=== PATIENT | female | born 1995 | race Caucasian/White ===

== ENCOUNTER 2021-07-12 | Day surgery (SDC) | payer BC ==
[2021-07-12] MEDS ORDERED: hydrALAZINE 20 MG/ML VIAL SLOW IVP PRN (01:16)
== END 2021-07-12 01:41 | disposition home or self-care (01) ==
LOC: CSHLD/OP
PROVIDERS: ATTEND Obstetrics & Gynecology
DX: O36.8130 Decreased fetal movements, third trimester, not applicable or unspecified (principal); Z3A.39 39 weeks gestation of pregnancy
CPT/HCPCS: 76815; 99282

== ENCOUNTER 2021-07-15 12:04 | Outpatient (CLI) | payer BC | END 2021-07-15 12:05 | disposition home or self-care (01) | LOC: CSHLAB 12:04 | PROVIDERS: ATTEND Student in an Organized Health Care Education/Training Program | DX: U07.1 COVID-19 (principal) | CPT/HCPCS: U0003; U0005 ==

== ENCOUNTER 2021-07-16 06:41 | Inpatient (IN) | payer BC ==
[2021-07-16] MEDS ORDERED: Butorphanol Tartrate 1 MG/ML VIAL SLOW IVP PRN (07:11)
[2021-07-16] MEDS ORDERED: Diphenoxylate HCl/Atropine Tablet PO PRN (07:11)
[2021-07-16] MEDS ORDERED: Lidocaine 1% (PF) 30 ML VIAL SC PRN (07:11)
[2021-07-16] MEDS ORDERED: hydrALAZINE 20 MG/ML VIAL SLOW IVP PRN ×2 (07:11→18:37)
[2021-07-16] MEDS ORDERED: Misoprostol 200 MCG TAB PR PRN (07:11)
[2021-07-16] MEDS ORDERED: Ondansetron PF 4 MG/2 ML Vial IVP PRN ×3 (07:11→18:37)
[2021-07-16] MEDS ORDERED: Methylergonovine 0.2 MG/ML VIAL IM PRN (07:11)
[2021-07-16] MEDS ORDERED: Carboprost 250 MCG/ML AMP IM PRN (07:11)
[2021-07-16] MEDS ORDERED: Promethazine HCl 25 MG/ML VIAL IM PRN ×2 (07:11→09:21)
[2021-07-16] MEDS ORDERED: NS w/ Oxytocin 30 units 500 ML IV SCH ×2 (07:15)
[2021-07-16] MEDS ORDERED: Penicillin G Potassium 5 MILL.UNITS in Sodium Chloride 0.9% 100 ML IVPB SCH (07:15)
[2021-07-16] MEDS ORDERED: Penicillin G Potassium 5 MILL.UNITS VIAL ONE (07:21)
[2021-07-16] MEDS ORDERED: NS w/ Oxytocin 30 units 500 ML ONE (07:21)
[2021-07-16 07:24] VITALS: BMI 34.2
[2021-07-16] MEDS: Lactated Ringer's 1,000 ML IV SCH ×2 (07:50→09:15)
[2021-07-16] MEDS: Penicillin G 2.5 MILL.units 2.5 MILL.UNITS in Premix Bag 1 BAG IVPB SCH ×2 (07:55→13:00)
[2021-07-16 08:36] LABS: Hemoglobin 12.5 g/dL (12.0-15.5); Mean Corpuscular HGB CONC 33.9 g/dL (32.0-36.0); Mean Corpuscular Hemoglobin 32.4 pg (27.0-33.0); Mean Corpuscular Volume 95.6 fl (81.6-98.3); Mean Platelet Volume 11.4 fl (7.4-10.4); Platelet Count 133 10x3/uL (150-450); RBC Distribution Width 13.8 % (11.5-14.5); Red Blood Cell (RBC) Count 3.86 10x6/uL (3.90-5.03); White Blood Cell (WBC) Count 7.1 10x3/uL (3.5-10.5)
[2021-07-16] MEDS ORDERED: Fentanyl 2 mcg/Bup 0.1% Cadd 100 ML ONE (08:43)
[2021-07-16 09:05] LABS: Hep B Surf Ag Non-Reactive S/CO (NonReactive)
[2021-07-16 09:07] LABS: Syphilis Antibody Nonreactive (Nonreactive); Syphilis Antibody Index 0.06 S/CO (<1.00 Non-Reactive)
[2021-07-16] MEDS ORDERED: Lactated Ringer's 500 ML IV PRN (09:21)
[2021-07-16] MEDS ORDERED: Naloxone HCl 0.4 mg/ml Vial IVP PRN ×2 (09:21)
[2021-07-16] MEDS ORDERED: diphenhydrAMINE 50 MG/ML VIAL IVP PRN (09:21)
[2021-07-16] MEDS ORDERED: ePHEDrine Sulfate 50 MG/10 ML VIAL SLOW IVP PRN (09:21)
[2021-07-16] MEDS ORDERED: Moisturizing Cream (Eucerin) 113 GM JAR TOP PRN (09:21)
[2021-07-16] MEDS ORDERED: Acetaminophen 325 MG TAB PO PRN (09:21)
[2021-07-16] MEDS ORDERED: Fentanyl 2 mcg/Bupivacaine 0.1% Cassette 100 ML EPIDURAL SCH (09:30)
[2021-07-16] MEDS ORDERED: Communication Order-Pharmacy FS SCH (09:30)
[2021-07-16 09:44] LABS: HBSAg Index 0.22 S/CO (0-0.99)
[2021-07-16] MEDS ORDERED: HYDROcodone/Acetaminophen 5/325 mg Tablet PO PRN (18:16)
[2021-07-16] MEDS ORDERED: Ibuprofen 800 MG TAB PO PRN (18:17)
[2021-07-16] MEDS ORDERED: Boostrix 0.5 ML (Tdap) VIAL IM ONE (18:37)
[2021-07-16] MEDS ORDERED: Lanolin Ointment 7 GM TUBE TOP PRN (18:37)
[2021-07-16] MEDS ORDERED: Bisacodyl 10 MG SUPP PR PRN (18:37)
[2021-07-16] MEDS ORDERED: Benzocaine-Menthol 82.5 ML CAN TOP PRN (18:37)
[2021-07-16] MEDS ORDERED: Milk Of Magnesia 30 ML UDCUP PO PRN (18:37)
[2021-07-16] MEDS: Ibuprofen 800 MG TAB PO SCH (21:25)
[2021-07-16] MEDS: Docusate 100 MG CAP PO SCH (21:25)
[2021-07-17] MEDS: Ibuprofen 800 MG TAB PO SCH ×3 (04:36→21:37)
[2021-07-17 05:54] LABS: Hemoglobin 10.2 g/dL (12.0-15.5)
[2021-07-17] MEDS: Ferrous Sulfate 325 MG TAB PO SCH (07:26)
[2021-07-17] MEDS: Docusate 100 MG CAP PO SCH ×2 (08:00→21:37)
[2021-07-17] MEDS: Prenatal Vitamin 1 TAB PO SCH (08:00)
[2021-07-18] MEDS: Ibuprofen 800 MG TAB PO SCH (05:22)
[2021-07-18] MEDS: Ferrous Sulfate 325 MG TAB PO SCH (07:14)
[2021-07-18 07:59] VITALS: BP 123/58; TEMP 98.3
[2021-07-18] MEDS: Docusate 100 MG CAP PO SCH (09:05)
[2021-07-18] MEDS: Prenatal Vitamin 1 TAB PO SCH (09:05)
== END 2021-07-18 15:55 | disposition home or self-care (01) | DRG 805 ==
LOC: CSHLD/OP 06:41 → CSHLD 07:43 → CSHANTE 18:23
PROVIDERS: ADMIT Student in an Organized Health Care Education/Training Program; ATTEND Student in an Organized Health Care Education/Training Program
PROC: 10E0XZZ Delivery of Products of Conception, External Approach (ICD-10-PCS; principal; 2021-07-16)
PROC: 3E033VJ Introduction of Other Hormone into Peripheral Vein, Percutaneous Approach (ICD-10-PCS; 2021-07-16)
PROC: 8E0ZXY6 Isolation (ICD-10-PCS; 2021-07-16)
PROC: 0UQMXZZ Repair Vulva, External Approach (ICD-10-PCS; 2021-07-16)
DX: O99.824 Streptococcus B carrier state complicating childbirth (principal); U07.1 COVID-19; Z37.0 Single live birth; O98.52 Other viral diseases complicating childbirth; D50.9 Iron deficiency anemia, unspecified; Z79.899 Other long term (current) drug therapy; Z3A.39 39 weeks gestation of pregnancy; O70.0 First degree perineal laceration during delivery; O90.81 Anemia of the puerperium
CPT/HCPCS: 36415; 51702; 85014; 85018; 85027; 86780; 86850; 86900; 86901; 87340; 99285; J2540; J2590; J7120

== ENCOUNTER 2022-10-22 14:21 | Inpatient (IN) | payer BC, OTHER ==
[2022-10-22] MEDS ORDERED: Lidocaine 1% (PF) 30 ML VIAL SC PRN ×2 (20:18→20:43)
[2022-10-22] MEDS ORDERED: Penicillin G Potassium 5 MILL.UNITS in Sodium Chloride 0.9% 100 ML IVPB SCH ×2 (20:30→20:45)
[2022-10-22 20:31] VITALS: BMI 33.9
[2022-10-22] MEDS ORDERED: Carboprost 250 MCG/ML AMP IM PRN (20:43)
[2022-10-22] MEDS ORDERED: Methylergonovine 0.2 MG/ML VIAL IM PRN (20:43)
[2022-10-22] MEDS ORDERED: HYDROcodone/Acetaminophen 5/325 mg Tablet PO PRN ×2 (20:43)
[2022-10-22] MEDS ORDERED: Acetaminophen 500 MG TAB PO PRN (20:43)
[2022-10-22] MEDS ORDERED: Promethazine HCl 25 MG/ML VIAL IM PRN (20:43)
[2022-10-22] MEDS ORDERED: Tranexamic Acid 1,000 MG/10 ML VIAL IVP PRN (20:43)
[2022-10-22] MEDS ORDERED: Ondansetron PF 4 MG/2 ML Vial IVP PRN (20:43)
[2022-10-22] MEDS ORDERED: hydrALAZINE 20 MG/ML VIAL SLOW IVP PRN (20:43)
[2022-10-22] MEDS ORDERED: Ibuprofen 800 MG TAB PO PRN (20:43)
[2022-10-22] MEDS ORDERED: Zolpidem Tartrate 5 MG TAB PO PRN (20:43)
[2022-10-22] MEDS ORDERED: Diphenoxylate HCl/Atropine Tablet PO PRN ×2 (20:43)
[2022-10-22] MEDS ORDERED: fentaNYL 50 mcg/mL 1 mL Vial SLOW IVP PRN (20:43)
[2022-10-22] MEDS ORDERED: Misoprostol 200 MCG TAB PR PRN (20:43)
[2022-10-22] MEDS ORDERED: Oxytocin 30 units/NS 500 ML 500 ML IV SCH ×2 (20:45)
[2022-10-22] MEDS ORDERED: Lactated Ringer's 1,000 ML IV SCH (20:45)
[2022-10-22] MEDS ORDERED: Penicillin G 2.5 MILL.units 2.5 MILL.UNITS in Premix Bag 1 BAG IVPB SCH (20:45)
[2022-10-22] MEDS ORDERED: Pen G 2.5 MILL.UNITS/50 ML BAG IVPB SCH (21:00)
[2022-10-22 21:11] LABS: Hematocrit 37.8 % (34.9-44.5); Hemoglobin 13.1 g/dL (12.0-15.5); Mean Corpuscular HGB CONC 34.7 g/dL (32.0-36.0); Mean Corpuscular Hemoglobin 33.2 pg (27.0-33.0); Mean Corpuscular Volume 95.7 fl (81.6-98.3); Mean Platelet Volume 11.7 fl (7.4-10.4); Platelet Count 156 10x3/uL (150-450); RBC Distribution Width 12.3 % (11.5-14.5); Red Blood Cell (RBC) Count 3.95 10x6/uL (3.90-5.03); White Blood Cell (WBC) Count 8.7 10x3/uL (3.5-10.5)
[2022-10-22 21:35] LABS: Syphilis Antibody Nonreactive (Nonreactive); Syphilis Antibody Index 0.05 S/CO (<1.00 Non-Reactive)
[2022-10-22 21:36] LABS: HBSAg Index 0.18 S/CO (0-0.99); Hep B Surf Ag - L&D Non-Reactive S/CO (NonReactive)
[2022-10-23] MEDS ORDERED: fentaNYL/Ropivacaine Epidural 100 ML ONE (00:26)
[2022-10-23] MEDS ORDERED: diphenhydrAMINE 50 MG/ML VIAL IVP PRN (01:20)
[2022-10-23] MEDS ORDERED: Moisturizing Cream (Eucerin) 113 GM JAR TOP PRN (01:20)
[2022-10-23] MEDS ORDERED: Acetaminophen 325 MG TAB PO PRN (01:20)
[2022-10-23] MEDS ORDERED: Ondansetron PF 4 MG/2 ML Vial IVP PRN (01:20)
[2022-10-23] MEDS ORDERED: Lactated Ringer's 500 ML IV PRN (01:20)
[2022-10-23] MEDS ORDERED: Naloxone HCl 0.4 mg/ml Vial IVP PRN ×2 (01:20)
[2022-10-23] MEDS ORDERED: ePHEDrine Sulfate 50 MG/10 ML VIAL SLOW IVP PRN (01:20)
[2022-10-23] MEDS ORDERED: Promethazine HCl 25 MG/ML VIAL IM PRN (01:20)
[2022-10-23] MEDS ORDERED: Communication Order-Pharmacy FS SCH (01:30)
[2022-10-23] MEDS ORDERED: fentaNYL 2 mcg/Ropivacaine 0.2% Epidural 100 ML CADD EPIDURAL SCH (01:30)
[2022-10-23] MEDS ORDERED: Preparation H Ointment 28 GM TUBE PR PRN (04:38)
[2022-10-23] MEDS ORDERED: Lanolin Ointment 7 GM TUBE TOP PRN (04:38)
[2022-10-23] MEDS ORDERED: diphenhydrAMINE 25 MG CAP PO PRN (04:38)
[2022-10-23] MEDS ORDERED: hydrALAZINE 20 MG/ML VIAL SLOW IVP PRN (04:38)
[2022-10-23] MEDS ORDERED: Bisacodyl 10 MG SUPP PR PRN (04:38)
[2022-10-23] MEDS ORDERED: Benzocaine-Menthol 82.5 ML CAN TOP PRN (04:38)
[2022-10-23] MEDS ORDERED: Milk Of Magnesia 30 ML UDCUP PO PRN (04:38)
[2022-10-23] MEDS ORDERED: Boostrix 0.5 ML (Tdap) VIAL (>/=7 yrs of age) IM ONE (04:38)
[2022-10-23] MEDS ORDERED: traMADol HCl 50 MG TAB PO PRN (04:38)
[2022-10-23] MEDS ORDERED: Bupivacaine 0.25% HCL 30 ML VIAL ONE (09:00)
[2022-10-23] MEDS ORDERED: Prenatal Vitamin 1 TAB PO SCH (09:00)
[2022-10-23] MEDS: Docusate 100 MG CAP PO SCH ×2 (14:05→21:50)
[2022-10-23] MEDS: Ibuprofen 800 MG TAB PO SCH ×3 (14:05→21:50)
[2022-10-23] MEDS: Ferrous Sulfate 325 MG TAB PO SCH ×2 (14:07→19:27)
[2022-10-23 23:34] VITALS: TEMP 98.5
[2022-10-24] MEDS: Ibuprofen 800 MG TAB PO SCH (05:41)
[2022-10-24 07:39] VITALS: BP 115/56
== END 2022-10-24 11:20 | disposition home or self-care (01) | DRG 807 ==
LOC: CSHLD 19:02 → UNDOADMIN 19:06 → CSHPP 10-23 06:33
PROVIDERS: ADMIT Obstetrics & Gynecology; ATTEND Obstetrics & Gynecology
PROC: 10E0XZZ Delivery of Products of Conception, External Approach (ICD-10-PCS; principal; 2022-10-23)
PROC: 0UQMXZZ Repair Vulva, External Approach (ICD-10-PCS; 2022-10-23)
DX: O99.824 Streptococcus B carrier state complicating childbirth (principal); Z37.0 Single live birth; O71.82 Other specified trauma to perineum and vulva; Z3A.39 39 weeks gestation of pregnancy
CPT/HCPCS: 51702; 85027; 86780; 86850; 86900; 86901; 87340; J2540; J3490; J7120; S0020